=== PATIENT | female | born 1985 | race Two or more races ===

== ENCOUNTER 2023-10-02 20:10 | Emergency (ER) | payer MEDICAID, OTHER ==
[~2023-10-02] VITALS: Ht 160 cm; Wt 72.2 kg
[2023-10-02 20:22] VITALS: BP 118/64; PULSE 85; RESP 18
[2023-10-02 20:52] VITALS: TEMP 102.3
[2023-10-02] MEDS: ACETAMINOPHEN 325 MG TAB PO ONE (20:52)
[2023-10-02 21:49] LABS: Basophils # (auto) 0.1 10 ^3/uL (0-0.2); Basophils % (auto) 0.6 % (0.0-2.0); Eosinophils # (auto) 0.1 10 ^3/uL (0-0.8); Eosinophils % (auto) 0.6 % (0.0-7.0); Hematocrit 32.5 % (36.0-46.0); Hemoglobin 10.8 g/dL (12.2-16.2); Lymphocytes # (auto) 0.8 10 ^3/uL (0.4-5.4); Lymphocytes % (auto) 6.3 % (10.0-50.0); Mean Corpuscular Hemoglobin 28.3 pg (28.0-32.0); Mean Corpuscular Hgb Conc. 33.1 g/dL (32.0-36.0); Mean Corpuscular Volume 85.3 fL (80.0-100.0); Monocytes % (auto) 7.4 % (0.0-12.0); Neutrophils # (auto) 11.4 10 ^3/uL (1.6-8.6); Neutrophils % (auto) 85.1 % (37.0-80.0); Nucleated Red Blood Cells % 0.1 %; Red Blood Cells 3.81 10^6/uL (4.0-5.20); Red Cell Distribution Width 19.6 % (11.8-14.3); White Blood Cell 13.4 10^3/uL (4.4-10.8)
[2023-10-02 22:00] VITALS: O2SAT 100
[2023-10-02 22:22] LABS: Erythrocyte Sedimentation Rate 15 mm/hr (0-20)
[2023-10-02] MEDS ORDERED: CEFI400C3 PO (22:35)
== END 2023-10-02 22:37 | disposition left against medical advice (07) ==
LOC: ER 20:10
DX: M25.561 Pain in right knee (principal); F17.210 Nicotine dependence, cigarettes, uncomplicated
CPT/HCPCS: 36415; 73562; 85025; 85652; 86141